=== PATIENT | female | born 1950 | race Caucasian/White ===

== ENCOUNTER → 2017-09-26 | Outpatient (CLI) | payer MEDICARE, OTHER ==
--- NOTE | 2017-09-26 10:33 | RAD ---
Ultrasound abdomen complete 09/26/2017 Clinical indication: Intermittent right upper quadrant and flank pain. Comparison: None. Findings: Visualized proximal pancreas unremarkable. Visualized upper abdominal aorta and IVC unremarkable. Gallbladder is normal in size and configuration. There is a tiny immobile echogenicity of the gallbladder wall measuring 0.3 cm. No gallbladder wall thickening or pericholecystic fluid. No intra or extrahepatic biliary ductal dilatation. Common bile duct measures 0.4 cm. Liver is homogeneous in echotexture without discrete mass or fluid collection in the visualized portions. Right kidney measures 9.3 cm in length without hydronephrosis or abnormal perinephric fluid collection. Left kidney measures 9.3 cm in length without hydronephrosis or abnormal perinephric fluid collection. There is a tiny simple appearing cystic structure at the inferior pole renal sinus measuring up to 0.8 cm, likely tiny renal sinus cyst. Spleen is normal in size measuring 7.2 cm in length with 3 echogenic structures within the spleen, measuring up to 1.9 cm, 1.4 cm, and 1.7 cm. The partially distended urinary bladder is unremarkable. Impression: 1. Tiny, 0.3 cm, mobile gallbladder wall echogenicity, may represent adherent sludge versus gallbladder polyp. Follow-up limited right upper quadrant ultrasound in 6 months is recommended. 2. 3 echogenic lesions in the spleen, indeterminate by ultrasound. Nonemergent MRI abdomen without with contrast is recommended for further evaluation. 3. No sonographic evidence of acute cholecystitis.
== END | disposition home or self-care (01) ==
LOC: US 08:04
PROVIDERS: ATTEND Nurse Practitioner Family
DX: R10.11 Right upper quadrant pain (principal)
CPT/HCPCS: 76700

== ENCOUNTER 2021-08-17 12:10 | Emergency (ER) | payer MEDICARE, OTHER ==
[~2021-08-17] VITALS: Ht 157.5 cm; Wt 65.0 kg
[2021-08-17 12:15] VITALS: BP 138/90
[2021-08-17] MEDS ORDERED: DIPHTH,PERTUSS(ACELL),TET TOX 0.5 ML DISP.SYRIN. VAX IM ONE (12:45)
--- NOTE | 2021-08-17 12:53 | PHYS DOC ---
Past History Additional Past Medical Histor: hypothyroid Past Surgical History: Tonsillectomy Alcohol Use: Occasionally General Adult EDM: Chief Complaint: LACERATION/AVULSION HPI: HPI: Patient is a 71-year-old female who presents to the emergency department today for a laceration to her left third finger. She reports that she cut her finger on glass. Patient is unsure of her last tetanus shot. She denies any decreased range of motion or decreased sensation in her finger. Review of Systems: Review of Systems: Musculoskeletal: HPI Integument: See HPI Neurologic: See HPI Current Medications: Current Meds: Current Medications Medications (Trade) Dose Ordered Sig/David Start Time Stop Time Status Last Admin Dose Admin Diphtheria/ Tetanus/Acell Pertussis (Boostrix) 0.5 ml ONCE ONCE 08/17/21 12:45 08/17/21 12:46 DC 08/17/21 12:48 0.5 ML Allergies: Allergies: Allergies Coded Allergies Type Severity Reaction Last Updated Verified No Known Drug Allergies 08/17/21 No Physical Exam: PE: Constitutional: Well developed, well nourished, no acute distress, non-toxic appearance. [] HENT: Normocephalic, atraumatic, bilateral external ears normal, oropharynx moist, no oral exudates, nose normal. [] Eyes: PERRL, EOMI, conjunctiva normal, no discharge. [] Neck: Normal range of motion, no stridor Cardiovascular: Normal peripheral perfusion Lungs & Thorax: Normal work of breathing, no tachypnea Abdomen: Soft and flat Skin: Warm, dry, no erythema, no rash. [] Avulsion noted to left third finger with active bleeding, range of motion intact, neuro intact, no visible foreign b odies. Back: Normal range of motion Extremities: No tenderness, no cyanosis, no clubbing, ROM intact, no edema. [] Neurologic: Alert and oriented X 3, normal motor function, normal sensory fun ction, no focal deficits noted. [] Psychologic: Affect normal, judgement normal, mood normal. [] Current Patient Data: Vital Signs: Vital Signs Date Time Temp Pulse Resp B/P (MAP) Pulse Ox O2 Delivery O2 Flow Rate FiO2 08/17/21 12:15 98.0 70 16 138/90 (106) 96 EKG: EKG: [] Radiology/Procedures: Radiology/Procedures: []ROCEDURE: FINGER(S) LEFT THREE VIEWS LEFT FINGER Clinical History: Reason: Laceration 3rd finger. Technique: AP, lateral and oblique collimated views of the middle finger were obtained. Comparison: None. Findings: There is no acute fracture or dislocation. There is no radiopaque foreign body. No soft tissue swelling is appreciated. Small marginal osteophytes of the DIP joint. IMPRESSION: No acute fracture. Electronically signed by: Davis Jay MD (08/17/2021 1:06 PM) [id number] DICTATED AND SIGNED BY: DAVIS JAY MD DATE: 08/17/21 0997 CC: KWASI MCHUGH MD; JANA LEO ABSTRACTER ~MTH0 0 Heart Score: C/O Chest Pain: N/A Risk Factors: Risk Factors: DM, Current or recent (<one month) smoker, HTN, HLP, family history of CAD, obesity. Risk Scores: Score 0 - 3: 2.5% MACE over next 6 weeks - Discharge Home Score 4 - 6: 20.3% MACE over next 6 weeks - Admit for Clinical Observation Score 7 - 10: 72.7% MACE over next 6 weeks - Early Invasive Strategies Course & Med Decision Making: Course & Med Decision Making Pertinent Labs and Imaging studies reviewed. (See chart for details) [] Patient presents to the emergency department today for an avulsion to her left third finger. Nailbed is intact. X-ray was performed to rule out fracture or foreign bodies which showed no acute findings.. Patient's tetanus was updated today. Patient's finger was cleansed in the emergency department, triple antibiotic ointment was placed and a dressing was placed. Patient was educated on wound care and to monitor for infection. Discussed these findings with supervising. Patient does not have any comorbidities that make start this infection and therefore was not discharged home with an antibiotic. I discussed with patient all findings and diagnostic testing as well as the need to follow- up with PCP for further evaluation and treatment or return to the ER if any new or worsening symptoms. Strict return precautions were also discussed at length. Patient voiced understanding and agreement with the plan. Patient is hemodynamically stable at the time of disposition. Dragon Disclaimer: Dragon Disclaimer: This electronic medical record was generated, in whole or in part, using a voice recognition dictation system. Departure Departure: Impression: Primary Impression: Avulsion, finger tip Qualified Codes: S61.209A - Unspecified open wound of unspecified finger without damage to nail, initial encounter Disposition: HOME / SELF CARE / HOMELESS Condition: GOOD Referrals: KWASI MCHUGH MD (PCP) Patient Instructions: Finger Avulsion Additional Instructions: You are seen in the emergency department today for an avulsion to your finger. There is no foreign body or fracture seen. Please keep your wound clean and dry you can wash with mild soap and warm water. Please apply Polysporin or triple antibiotic ointment and keep the dressing in place. Monitor for any signs of infection which include redness, warmth, swelling or drainage. Please return to the emergency department or follow-up with your primary care provider if you notice these findings. Return to the emergency department if you develop any signs of infection, high fevers refractory to treatment, tractable nausea or vomiting, decreased range of motion, decreased sensation in your finger. JANA LEO APRN Aug 17, 2021 12:53
--- NOTE | 2021-08-17 13:08 | RAD ---
THREE VIEWS LEFT FINGER Clinical History: Reason: Laceration 3rd finger. Technique: AP, lateral and oblique collimated views of the middle finger were obtained. Comparison: None. Findings: There is no acute fracture or dislocation. There is no radiopaque foreign body. No soft tissue swelli ng is appreciated. Small marginal osteophytes of the DIP joint. IMPRESSION: No acute fracture. Electronically signed by: Davis Walsh MD (08/17/2021 1:06 PM) [id number]
[2021-08-17] MEDS ORDERED: NEOMY/BACITR/POLYMYXIN OINT PACKET. TP ONE (14:00)
== END 2021-08-17 14:09 | disposition home or self-care (01) ==
LOC: ER 12:10
DX: S61.209A Unspecified open wound of unspecified finger without damage to nail, initial encounter (principal); W25.XXXA Contact with sharp glass, initial encounter; Y93.89 Activity, other specified; Y92.89 Other specified places as the place of occurrence of the external cause; Y99.8 Other external cause status
CPT/HCPCS: 73140; 90471; 90715; 99283